=== PATIENT | female | born 1955 | race Caucasian/White ===

== ENCOUNTER 2022-12-06 13:45 | Emergency (ER) | payer MEDICARE ==
[~2022-12-06] VITALS: Ht 162.6 cm; Wt 61.2 kg
[2022-12-06 13:51] VITALS: BP 140/87
[2022-12-06] MEDS ORDERED: LACOSAMIDE150 M1 PO (15:04)
[2022-12-06] MEDS ORDERED: DONEPEZIL HCL10 MG PO (15:04)
[2022-12-06] MEDS ORDERED: Diovan160 MG PO (15:04)
[2022-12-06] MEDS ORDERED: AMLO10 PO (15:04)
== END 2022-12-06 15:08 | disposition home or self-care (01) ==
LOC: ER 13:45
DX: Z76.0 Encounter for issue of repeat prescription (principal); Z88.6 Allergy status to analgesic agent
CPT/HCPCS: 99281

== ENCOUNTER 2024-02-18 03:44 | Day surgery (SDC) | payer OTHER ==
[~2024-02-18 03:44] MED LIST: AMLO10 PO; DONEPEZIL HCL10 MG PO; Diovan160 MG PO; LACOSAMIDE150 M1 PO
[2024-02-18] MEDS ORDERED: NS IV SCH (07:05)
[2024-02-18] MEDS ORDERED: Acetaminophen 325 MG TABLET PO SCH (07:05)
[2024-02-18] MEDS ORDERED: DiphenhydrAMINE HCl 50 MG/ML 1ML Vial IV SCH (07:05)
[2024-02-18] MEDS ORDERED: UBLITUXIMAB XIIY IV SCH (07:05)
[2024-02-18] MEDS ORDERED: MethylPREDNISolone Sod Succ 125 MG Vial IV SCH (07:05)
[2024-02-18 13:18] VITALS: BP 145/78
[2024-02-18] MEDS ORDERED: Bupropion HCl75 MG PO (13:24)
[2024-02-18] MEDS ORDERED: VITAMIN D33000 UNIT PO (13:25)
[2024-02-18] MEDS ORDERED: B-12500 MC2 (13:25)
[2024-02-18] MEDS ORDERED: Aspir 8181 MG PO (13:29)
[2024-02-18 14:33] VITALS: BP 104/66
[2024-02-18 15:02] VITALS: BP 107/61
[2024-02-18 16:04] VITALS: BP 109/64
[2024-02-18 18:15] VITALS: BP 119/79
[2024-02-18 19:18] VITALS: BP 120/82
== END 2024-02-18 19:21 | disposition home or self-care (01) ==
LOC: ATC 03:44
DX: G35 Multiple sclerosis (principal); I10 Essential (primary) hypertension; G40.909 Epilepsy, unspecified, not intractable, without status epilepticus; Z79.82 Long term (current) use of aspirin; Z79.899 Other long term (current) drug therapy; Z88.5 Allergy status to narcotic agent; Z88.6 Allergy status to analgesic agent; Z90.49 Acquired absence of other specified parts of digestive tract
CPT/HCPCS: 96365; 96366; 96375; A9270; J1200; J2329; J2919; J7050

== ENCOUNTER 2024-03-10 02:36 | Day surgery (SDC) | payer OTHER ==
[~2024-03-10 02:36] MED LIST changes: +Aspir 8181 MG PO; +B-12500 MC2; +Bupropion HCl75 MG PO; +VITAMIN D33000 UNIT PO
[2024-03-10] MEDS ORDERED: UBLITUXIMAB-XIIY 450 MG in NS 232 ML IV SCH (06:00)
[2024-03-10] MEDS ORDERED: Acetaminophen 325 MG TABLET PO SCH (07:15)
[2024-03-10] MEDS ORDERED: MethylPREDNISolone Sod Succ 125 MG Vial IV SCH (07:15)
[2024-03-10] MEDS ORDERED: DiphenhydrAMINE HCL 25 MG Cap PO SCH (07:15)
[2024-03-10 14:54] VITALS: BP 124/80
== END 2024-03-10 16:50 | disposition home or self-care (01) ==
LOC: ATC 02:36
DX: G35 Multiple sclerosis (principal); I10 Essential (primary) hypertension; G40.109 Localization-related (focal) (partial) symptomatic epilepsy and epileptic syndromes with simple partial seizures, not intractable, without status epilepticus; D72.810 Lymphocytopenia; R41.3 Other amnesia; Z79.82 Long term (current) use of aspirin; Z88.5 Allergy status to narcotic agent; Z88.8 Allergy status to other drugs, medicaments and biological substances
CPT/HCPCS: 96365; 96375; A9270; J2329; J2919; J7050

== ENCOUNTER → 2024-04-04 | Outpatient (CLI) | payer OTHER | LOC: LAB 18:40 → LAB SHORT 18:40 | DX: R30.0 Dysuria (principal) | CPT/HCPCS: 87086 ==

== ENCOUNTER → 2024-05-13 | Outpatient (CLI) | payer OTHER ==
[2024-05-13 14:02] LABS: Source, Urine Clean Catch
[2024-05-13 18:57] LABS: Appearance, Urine Cloudy (Clear); Bilirubin, Urine Neg (Neg); Blood, Urine 4+ (Neg); Color, Urine Yellow (P-Yellow); Glucose Qualitative, Urine Neg (Neg); Ketones, Urine Neg (Neg); Leukocyte Esterase, Urine 3+ (Neg); Nitrite, Urine Pos (Neg); Protein, Urine 3+ (Neg); Specific Gravity, Urine 1.025 (1.003-1.022); Urobilinogen, Urine NORM (Normal)
[2024-05-13 19:10] LABS: White Blood Cells, Urine TNTC /hpf (0-5)
[2024-05-13 19:11] LABS: Amorphous Light (0-Heavy); Bacteria Many /hpf; Squamous Epithelial Cells Few /hpf (Few)
== END ==
LOC: LAB SHORT 13:00 → LAB 13:00
PROVIDERS: Nurse Practitioner Family
DX: R30.0 Dysuria (principal)
CPT/HCPCS: 81001; 87077; 87086; 87186